=== PATIENT | female | born 1950 | race Caucasian/White ===

== ENCOUNTER → 2025-04-07 11:06 | Outpatient (REF) | payer OTHER, SELFPAY | LOC: RAD 11:06 | PROVIDERS: ATTENDING PHYSICIAN Family Medicine | DX: R91.8 Other nonspecific abnormal finding of lung field (principal); Z86.19 Personal history of other infectious and parasitic diseases | CPT/HCPCS: 71250; 76700 ==

== ENCOUNTER → 2025-07-18 11:44 | Outpatient (REF) | payer OTHER, SELFPAY | LOC: RAD 11:44 | PROVIDERS: ATTENDING PHYSICIAN Physician Assistant Medical | DX: M79.674 Pain in right toe(s) (principal) | CPT/HCPCS: 73630 ==